=== PATIENT | male | born 1980 | race Caucasian/White ===

== ENCOUNTER 2018-01-01 06:40 | Emergency (ER) | payer SELFPAY ==
[2018-01-01 06:41] VITALS: BP 143/80; PULSE 70; RESP 16; TEMP 36.6; O2SAT 98; BMI 31.4
--- NOTE | 2018-01-01 07:01 | CT_ITS ---
STUDY: CT ABDOMEN AND PELVIS WITHOUT CONTRAST REASON FOR EXAM: Male, 37 years old. Increasing chronic back pain worse on the left side. RADIATION DOSAGE (If Supplied By Facility): CTDIvol = ( 9.82 ) mGy, DLP = ( 532.63 ) mGycm TECHNIQUE: Transaxial images were obtained from the dome of the diaphragm to the symphysis pubis without oral contrast, and without intravenous contrast. Sagittal and coronal images were reconstructed. Individualized dose optimization techniques were used for this CT. COMPARISON: None. FINDINGS: There is a mild degree of increased markings at the lung bases suggestive of bibasilar atelectasis. The visualized portions of the heart are within normal limits. Normal liver. Normal gallbladder and extrahepatic biliary system. Normal spleen. Normal pancreas. Normal bilateral adrenal glands. Normal right kidney. There is evidence of left perinephric stranding and mild left hydronephrosis. Mild dilatation of the left ureter. There is a 3.4 mm calculus at the base of the bladder on the left side. This is suggestive of a recently passed left ureteral calculus. Normal visualized stomach. Normal small intestine. Normal colon. The appendix is visualized and appears normal. Normal abdominal aorta. Normal inferior vena cava. Normal retroperitoneum. Normal urinary bladder. There is a small umbilical hernia containing fat. Limbus vertebrae along the anterior aspect of the superior endplate of the L4 vertebrae. CT/Abdomen/Pelvis without Cont IMPRESSION: Findings suggestive of a recently passed left ureteral calculus with left perinephric stranding and mild left hydronephrosis and hydroureter. Electronically Signed: Tim Mccann MD at 8:05 EDT Tel [phone], Service support ,
[2018-01-01] MEDS: Morphine 4 MG/ML Syringe IV (07:24)
[2018-01-01] MEDS: Ketorolac 30 MG/ML Syringe IV (07:24)
[2018-01-01] MEDS: 0.9% Normal Saline 1,000 ML 250 ML IV (07:24)
[2018-01-01] MEDS: Ondansetron 4 MG/2 ML Vial IV (07:25)
--- NOTE | 2018-01-01 08:37 | ED.DCSUM_ITS ---
- ER Visit Summary Date of Service: 01/01/18 Chief Complaint: Left flank pain History of Present Illness: The patient is a [address] Gladis Kerr. He reports that he was driving to work this morning at [employer] when he had the abrupt onset of a left flank pain. He describes the pain as sharp and 10 out of 10 severity. He has been nauseated and had dry heaves with this. The pain is worsened by nothing including movement. It is also relieved by nothing. There is no radiation to his legs. No problems with his bowels or his bladder. No groin numbness. Patient denies any recent trauma. No fall, MVA, or change in activity. Patient denies any dysuria, frequency, or hematuria. No fever or chills. No personal history of kidney stones. However, he does have a family history of kidney stones. Physical Examination: Vitals: Stable. Afebrile. General: Well-nourished and well-developed. Head: Normocephalic atraumatic. Neck: Supple, no lymphadenopathy. No JVD. Nontender. Cardiovascular: Regular rate and rhythm. No murmurs. Respiratory: No respiratory distress. Clear to auscultation bilaterally. Abdominal: Soft, nontender, nondistended, normal bowel sounds. No guarding, rebound, or peritoneal signs. Back: Nontender. Extremities: Nontender, no edema. Skin: Normal color, no rash. Neurologic: Alert and oriented ?3. Cranial nerves II through XII are intact. Normal strength and sensation. Psych: Normal affect. Test Results: CT flank shows left perinephric stranding and mild left hydronephrosis. Mild dilation of the ureter. 3.4 mm calculus in the bladder on the left suggestive of a recently passed stone. Urinalysis shows no evidence of infection. Emergency Department Course and Treatment: Patient had an IV placed. He was given morphine, Toradol, and Zofran IV. He is resting comfortably. Treatment Plan: Patient will be discharged with a urine strainer. Given a prescription for [place] and Zofran. Instructed to follow-up his primary care physician in 3-5 days if not improving. Return to the emergency department for any worsening symptoms. Disposition: To home in improved and stable condition. Impression: 1. Left ureterolithiasis. This note was generated with Dragon dictation software. It may contain incorrect words, spelling, and punctuation that were not noted in review of the chart prior to signing ED Disposition - Plan for ED Patient: Chief Complaint: Back Instructions: ED Stone Renal W Colic Prescriptions: Ondansetron [Zofran Odt] 4 mg PO Q8H PRN PRN #10 tablet PRN Reason: Nausea Hydrocodone/Acetaminophen [[place] 5-325 Tablet] 1 - 2 each PO 4X/DAY PRN PRN 3 Days #12 tablet PRN Reason: Pain Naproxen [Naprosyn] 500 mg PO BID #14 tablet Referrals: Cheryle Aceves [Primary Care Provider] - 1 Week if not improving
[2018-01-01 09:21] LABS: Bacteria 0 SEEN /hpf (None Seen); Mucous, Urine 0 SEEN /hpf (<or=2+); White Blood Cells 0 SEEN /hpf (0-5)
[2018-01-01 09:23] LABS: Color, Urine Yellow (Yellow); Glucose, Dipstick Normal (Normal); Ketone-Dipstick Negative (Negative); Leukocyte Esterase-Dipstick Negative /ul (Negative); Nitrite-Dipstick Negative (Negative); Occult Blood-Urine 25 /ul (Negative); Protein-Dipstick Negative (Negative); Urine Bilirubin Dipstick Negative (Negative); Urine Clarity Clear (Clear); Urine Urobilinogen Normal (Normal)
[2018-01-01 09:29] LABS: Red Blood Cells-Urine 0-5 SEEN /hpf (0-5)
[2018-01-01 09:30] LABS: Squamous Epithelial Cells - UA 0-5 SEEN /hpf (0-5)
[2018-01-01 10:04] VITALS: BP 138/72; PULSE 82; RESP 16; O2SAT 98
== END 2018-01-01 10:05 | disposition home or self-care (01) ==
LOC: ED 07:08
PROVIDERS: Emergency Provider Emergency Medicine; Family Provider Family Medicine; PCP Family Medicine
DX: N13.2 Hydronephrosis with renal and ureteral calculous obstruction (principal)
CPT/HCPCS: 74176; 81001; 96374; 96375; 99285; J7030; J2405

== ENCOUNTER → 2018-01-14 17:21 | Outpatient (CLI) | payer BC, SELFPAY ==
[2018-01-24 20:09] LABS: Ca Oxalate, Monohydrate 90 % (.); Size 4x2x2 mm (.)
== END ==
PROVIDERS: Family Provider Family Medicine; PCP Family Medicine; Visit Provider Urology
DX: N20.0 Calculus of kidney (principal)
CPT/HCPCS: 82360